=== PATIENT | male | born 1965 | race Caucasian/White ===

== ENCOUNTER 2016-10-18 18:26 | Emergency (ER) | payer BC, OTHER ==
[~2016-10-18] VITALS: Ht 193 cm; Wt 102.0 kg
[2016-10-18 18:26] VITALS: BP 185/105; PULSE 87; RESP 16; TEMP 97.6; O2SAT 98
[2016-10-18] MEDS ORDERED: PRIL10PO PO (18:35)
--- NOTE | 2016-10-18 19:05 | RADRPT ---
EXAM DATE/TIME: 10/18/2016 18:45 [facility] COMPARISON: No previous studies available for comparison. INDICATIONS : Fell off roof, head, neck and facial pain. RADIATION DOSE: 43.56 CTDIvol (mGy) MEDICAL HISTORY : Gastroesophageal reflux disease. SURGICAL HISTORY : None. ENCOUNTER: Initial ACUITY: 1 day PAIN SCALE: 7/10 LOCATION: cranial TECHNIQUE: Multiple contiguous axial images were obtained of the head. Using automated exposure control and adj ustment of the mA and/or kV according to patient size, radiation dose was kept as low as reasonably a chievable to obtain optimal diagnostic quality images. DICOM format image data is available electro nically for review and comparison. FINDINGS: CEREBRUM: The ventricles are normal for age. No evidence of midline shift, mass lesion, hemorrhage or acute in farction. No extra-axial fluid collections are seen. POSTERIOR FOSSA: The cerebellum and brainstem are intact. The 4th ventricle is midline. The cerebellopontine angle i s unremarkable. EXTRACRANIAL: The visualized portion of the orbits is intact. SKULL: The calvaria is intact. No evidence of skull fracture. CONCLUSION: No bleed or other acute intracranial abnormality. Omkar Jeffries MD on October 18, 2016 at 19:04 Board Certified Radiologist. This report was verified electronically.
--- NOTE | 2016-10-18 19:20 | RADRPT ---
EXAM DATE/TIME: 10/18/2016 18:45 [facility] COMPARISON: No previous studies available for comparison. INDICATIONS : Fell off roof, head, neck and facial pain. RADIATION DOSE: 42.99 CTDIvol (mGy) MEDICAL HISTORY : Gastroesophageal reflux disease. SURGICAL HISTORY : None. ENCOUNTER: Initial ACUITY: 1 day PAIN SCALE: 7/10 LOCATION: neck TECHNIQUE: Volumetric scanning of the cervical spine was performed. Multiplanar reconstructions in the sagittal, coronal and oblique axial planes were performed. Using automated exposure control and adjustment o f the mA and/or kV according to patient size, radiation dose was kept as low as reasonably achievable to obtain optimal diagnostic quality images. DICOM format image data is available electronically f or review and comparison. FINDINGS: No fracture or subluxation of the cervical spine. Vertebral bodies have normal height. Mild disc spac e narrowing with mild uncovertebral and facet osteoarthritis seen at each level, C3/C4-C6 last C7. No significant foraminal or spinal stenosis demonstrated. No evidence of an acute disc herniation. Paravertebral soft tissues are within normal limits. CONCLUSION: Intact cervical spine. Mild multilevel degenerative changes. Omkar Jeffries MD on October 18, 2016 at 19:16 Board Certified Radiologist. This report was verified electronically.
--- NOTE | 2016-10-18 19:23 | RADRPT ---
EXAM DATE/TIME: 10/18/2016 18:45 [facility] COMPARISON: No previous studies available for comparison. INDICATIONS : Fell off roof, head, neck and facial pain. RADIATION DOSE: 56.76 CTDIvol (mGy) MEDICAL HISTORY : Gastroesophageal reflux disease. SURGICAL HISTORY : None. ENCOUNTER: Initial ACUITY: 1 day PAIN SCORE: 7/10 LOCATION: facial TECHNIQUE: Volumetric scanning of the facial bones was performed. Using automated exposure control and adjustme nt of the mA and/or kV according to patient size, radiation dose was kept as low as reasonably achiev able to obtain optimal diagnostic quality images. DICOM format image data is available electronicall y for review and comparison. FINDINGS: ORBITS: The orbital and infraorbital osseous structures are intact. The retroconal structures have a normal configuration. No radiopaque foreign bodies are seen. NASAL BONE: A very comminuted fracture involves the tip of the nasion and both sides of the nasal arch. In genera l, displacement is slightly towards the left. A mildly displaced fracture seen of the anterior septum ZYGOMATIC ARCHES: Symmetric without evidence of fracture. SINUSES: The maxillary, ethmoid and frontal sinuses are intact. No air-fluid levels seen. NASAL CAVITY: The nasal septum is intact and midline. The lacrimal ducts are intact. SOFT TISSUES: No radiopaque foreign bodies seen. No soft-tissue swelling is seen. INTRACRANIAL: No intracranial air seen. CRIBIFORM PLATE: Grossly intact. CONCLUSION: Very comminuted, mildly displaced fracture of the nose as above. Other facial bones are intact. Omkar Jeffries MD on October 18, 2016 at 19:19 Board Certified Radiologist. This report was verified electronically.
[2016-10-18] MEDS ORDERED: ACETAMINOPHEN/HYDROcodone 325 MG/5 MG TAB PO ONE (19:45)
[2016-10-18] MEDS ORDERED: HYDR-3533 PO (19:45)
--- NOTE | 2016-10-18 19:46 | PD ---
HPI Chief Complaint: Fall Time Seen by Provider: 18:31 Travel History International Travel<30 days: No Contact w/Intl Traveler<30days: No Traveled to known affect area: No History of Present Illness HPI Supple 51-year-old man who presents to the emergency department for evaluation after fall. He was climbing up a ladder trying to get on his roof, approximately 12 feet in the air when he fell forward and landed on his face. No LOC. He heard a Crunching sound. No neck pain. No numbness tingling or weakness. History Past Medical History Narrative Medical GERD Past Surgical History Surgical History: No Previous Surgery Social History Alcohol Use: No Tobacco Use: No Allergies-Medications (Allergen,Severity, Reaction): Coded Allergies: No Known Allergies (Verified Allergy, Unknown, 10/18/16) Reported Meds & Prescriptions Reported Meds & Active Scripts Active Reported Prilosec (Omeprazole Magnesium) 10 Mg Pow 10 Mg PO DAILY Review of Systems Except as stated in HPI: all other systems reviewed are Neg Physical Exam Narrative GENERAL: Well-appearing 51 year-old woman, no acute distress. SKIN: Focused skin assessment warm/dry. HEAD: Atraumatic. Normocephalic. EYES: Pupils equal and round. No scleral icterus. No injection or drainage. ENT: No nasal bleeding or discharge. Bruising and tenderness over the bridge of the nose with some ecchymosis and swelling. Is dry blood in the nares and in the mouth. No lacerations. His a small abrasion on the right side of his nasal bridge. NECK: Trachea midline. No JVD. CARDIOVASCULAR: Regular rate and rhythm. No murmur appreciated. RESPIRATORY: No accessory muscle use. Clear to auscultation. Breath sounds equal bilaterally. GASTROINTESTINAL: Abdomen soft, non-tender, nondistended. Hepatic and splenic margins not palpable. MUSCULOSKELETAL: No obvious deformities. No edema. NEUROLOGICAL: Awake and alert. No obvious cranial nerve deficits. Motor grossly within normal limits. Normal speech. Data Data Last Documented VS Vital Signs Date Time Temp Pulse Resp B/P (MAP) Pulse Ox O2 Delivery O2 Flow Rate FiO2 10/18/16 18:26 97.6 87 16 185/105 (131) [address] Brain W/O Iv Contrast(Rout) (10/18/16 ) Ct Cerv Spine W/O Contrast (10/18/16 ) Ct Facial Bones W/O Iv Cont (10/18/16 ) Acetamin-Hydrocod 325-5 Mg ([place] 5-325 (10/18/16 19:45) MDM Medical Decision Making Medical Screen Exam Complete: Yes Emergency Medical Condition: Yes Interpretation(s) CT head, face, cervical spine remarkable only for severely comminuted mildly displaced nasal fractures. Differential Diagnosis Fracture, contusion, weakness, other Narrative Course Medical decision making Is a 51-year-old man presents emergency Department with fall. He has nasal fractures only. Outpatient follow-up with crit of facial be fine. We'll give pain medicine. Diagnosis Primary Impression: Nasal bone fractures Referrals: Rodolfo Bishop DDS call for appointment Departure Forms: Tests/Procedures Additional Instructions: Use Lortab if needed for pain. Use ice to reduce swelling, 15 minutes on at a time for the first couple hours. You can follow-up with Dr. Bishop as an outpatient. Call for an appointment. Return to the emergency department for any new or worsening symptoms. Med/Other Pt SpecificInfo: Prescription(s) given Scripts Hydrocodone-Acetaminophen (Lortab) 5-325 Mg Tab 1-2 TAB PO Q6H Y for PAIN, #15 TAB 0 Refills Prov: Emigdio Berry MD 10/18/16 Disposition: 01 DISCHARGE HOME Condition: Stable Emigdio Berry MD Oct 18, 2016 19:46
== END 2016-10-18 19:54 | disposition home or self-care (01) ==
LOC: NEPE 18:26
DX: S02.2XXA Fracture of nasal bones, initial encounter for closed fracture (principal); W11.XXXA Fall on and from ladder, initial encounter; Y93.39 Activity, other involving climbing, rappelling and jumping off; Y92.008 Other place in unspecified non-institutional (private) residence as the place of occurrence of the external cause
CPT/HCPCS: 70450; 70486; 72125; 99285